=== PATIENT | female | born 1955 | race Caucasian/White ===

== ENCOUNTER 2021-10-18 07:55 | Outpatient (REF) | payer MEDICARE, OTHER, SELFPAY ==
[2021-10-18 08:21] LABS: MANUAL DIFF FLAG NO
[2021-10-18 09:01] LABS: Basophils Absolute Auto 0.1 X10*3/uL (0.0-0.2); Eosinophils Absolute Auto 0.4 X10*3/uL (0.0-0.4); Eosinophils Percent Auto 5.9 % (0-4); Hematocrit 42.6 % (37.0-47.0); Hemoglobin 13.9 g/dl (12.0-16.0); Imm Gran Abs Auto 0.02 X10*3/uL (0.00-0.03); Imm Gran Pct Auto 0.3 % (0.0-0.4); Lymphocytes Percent Auto 44.2 % (20-40); Mean Corpuscular HGB Conc 32.6 g/dl (31.0-35.0); Mean Corpuscular Hemoglobin 29.5 pg (27.0-33.0); Mean Corpuscular Volume 90.4 fL (80.0-98.0); Monocytes Absolute Auto 0.7 X10*3/uL (0.1-1.2); Monocytes Percent Auto 9.9 % (2-11); Neutrophils Absolute Auto 2.6 x10*3/uL (2.0-8.3); Neutrophils Percent Auto 38.7 % (45-73); Platelet Count 377 X10*3/uL (160-400); Red Blood Count 4.71 X10*6/uL (4.20-5.50); Red Cell Distribution Width 11.9 % (11.0-16.0); White Blood Count 6.7 X10*3/uL (4.8-10.8)
[2021-10-18 09:41] LABS: Alanine Aminotransferase 24 U/L (0-31); Albumin Level 4.1 g/dL (3.5-5.0); Alkaline Phosphatase 65 U/L (39-117); Anion Gap 10 (12-20); Aspartate Amino Transferase 17 U/L (5-31); Bilirubin Total 0.6 mg/dL (0.0-1.0); Blood Urea Nitrogen 7 mg/dL (9-16); Calcium 10.2 mg/dL (8.4-10.2); Carbon Dioxide 29 mmol/L (22-29); Chloride 108 mmol/L (96-108); Cholesterol 207 mg/dL; Estimated Glomerular Filt Rate > 60; Glucose Random 111 mg/dL (60-115); HDL Cholesterol 62 mg/dL; LDL Cholesterol Calculated 127 mg/dl; Potassium 5.1 mmol/L (3.3-5.1); Sodium 142 mmol/L (135-145); Total Protein 6.7 g/dL (6.5-8.0); Triglycerides 91 mg/dL
[2021-10-18 10:02] LABS: Thyroid Stimulating Hormone 0.01 uIU/mL (0.32-4.0)
== END 2021-10-18 07:56 | disposition home or self-care (01) ==
LOC: HO.LAB 07:55
PROVIDERS: PCP Internal Medicine; Visit Provider Internal Medicine
DX: Z00.00 Encounter for general adult medical examination without abnormal findings (principal); E03.9 Hypothyroidism, unspecified
CPT/HCPCS: 36415; 80053; 80061; 84443; 85025

== ENCOUNTER 2023-03-17 20:16 | Emergency (ER) | payer MEDICARE, OTHER, SELFPAY ==
--- NOTE | ~2023-03-17 | XR_ITS ---
EXAMINATION: CHEST 2 VIEWS CLINICAL INFORMATION: chest pain. COMPARISON: No recent pertinent prior studies are available for comparison. TECHNIQUE: PA and lateral views of the chest obtained. FINDINGS: The lungs are well expanded. No focal infiltrate, effusion, edema, or pneumothorax. Cardiac and mediastinal silhouettes are within normal limits for technique. No acute bony abnormality seen XR/XR chest 2V IMPRESSION: No evidence of acute disease
--- NOTE | 2023-03-17 20:20 | ECG_ITS ---
Test Reason : CHEST PAIN Blood Pressure : / mmHG Vent. Rate : 160 BPM Atrial Rate : 166 BPM P-R Int : 000 ms QRS Dur : 070 ms QT Int : 286 ms P-R-T Axes : 000 014 025 degrees QTc Int : 466 ms Atrial fibrillation with rapid ventricular response Nonspecific ST abnormality Abnormal ECG When compared with ECG of 16-JUN-2019 13:41, Atrial fibrillation with rapid ventricular response has replaced Normal sinus rhythm Non-specific change in ST segment in Inferior leads Nonspecific T wave abnormality now evident in Inferior leads Referred By: Indy García Electronically Signed By:ASPEN BRAVO MD
[2023-03-17 20:40] VITALS: BP 166/84; PULSE 189; RESP 18; TEMP 36.9; O2SAT 96
[2023-03-17 20:42] VITALS: BP 153/79; PULSE 98; RESP 14; TEMP 36.9; O2SAT 95
--- NOTE | 2023-03-17 20:45 | ED.ARRPALP ---
HPI - Arrhythmia/Palpitations General Chief Complaint: Arrhythmia/Palpitations Stated Complaint: heart palpitations, difficulty breathing Time Seen by Provider: 03/17/23 20:25 Source: patient Mode of arrival: ambulatory Limitations: no limitations History of Present Illness HPI narrative: Patient comes to emergency room complaining of ?not feeling good? and palpitations. Patient states that all morning she has not felt quite good, unable to explain, uncomfortable, no chest pain, no significant shortness of breath. 30 minutes prior to arrival, patient started noticing the palpitations, noticed that her heart rate was beating fast and came to the emergency room. On arrival to the ED, heart rate was 189 with a blood pressure of 166/84. Related Data Previous Rx's Medication Instructions Recorded apixaban 5 mg tablet (Eliquis) 5 mg PO BID #60 tabs 03/17/23 metoprolol succinate 25 mg 25 mg PO DAILY #30 tabs 03/17/23 tablet,extended release 24 hr (Toprol XL) Allergies Allergy/AdvReac Type Severity Reaction Status Date / Time amitriptyline [AMITRIPTYLINE] Allergy Severe TONGUE/MOUTH Unverified 07/01/20 16:44 SWELLING Review of Systems Review of Systems: Constitutional : No Weight loss, No Fever, No Chills, No Night Sweats, No Fatigue, generalized malaise, uncomfortable ENT/Mouth : No Hearing loss, No Ear Pain, No Nasal Congestion, No Sinus Pain, No Hoarseness, No sore throat, No Rhinorrhea, No Swallowing Difficulty Eyes: No Eye Pain, No Swelling, No Redness, No Foreign Body, No Discharge, No Vision Changes Cardiovascular : No Chest Pain, No SOB, No Dyspnea on Exertion, No Orthopnea, No Edema, palpitations and rapid heart rate Respiratory : No Cough, No Sputum, No Wheezing, No Smoke Exposure, No Dyspnea Gastrointestinal : No Nausea, No Vomiting, No Diarrhea, No Constipation, No abdominal Pain, No Hematochezia, No Melena Genitourinary : no irregular bleeding, No Dysuria, No Urinary Frequency, No Hematuria, No Urinary Incontinence, No Urgency, No Flank Pain, No Urinary Flow Changes, No Hesitancy Musculoskeletal : No joint pain, No Myalgias, No Joint Swelling Skin : No Skin Lesions, No rash Neuro : No Weakness, No Numbness, No Paresthesias, No Loss of Consciousness, No Dizziness, No Headache Psych : No Anxiety/Panic, No Depression, No SI/HI/AH/VH, No Social Issues, Heme/Lymph: No Bruising, No Bleeding,No Lymphadenopathy Endocrine : No Polyuria, No Polydipsia, No Temperature Intolerance [facility], [facility] Past Medical History Medical History (Updated 03/17/23 @ 23:43 by Lolly Escalante MD) Atrial fibrillation Hypothyroidism Social History Social History Advance Directives: No Advance Directives Information Provided: No Physical Exam Vital Signs: Vital Signs: Last Vital Signs Temp 98 F 03/17/23 22:26 Pulse 75 03/17/23 22:26 Resp 14 03/17/23 22:26 BP 124/70 03/17/23 22:26 Pulse Ox 96 03/17/23 22:26 O2 Del Method Room Air 03/17/23 22:26 BMI result Body Mass Index 26.6 Const: Other: Appearance: Alert. Oriented X3. Looks uncomfortable Eyes: Pupils equal, round and reactive to light. ENT: Pharynx normal. Neck: Normal inspection. Neck supple. No lymph nodes noted. No crepitus CVS: Tachycardic, heart rate in the 180s, irregular heart rate, Pulses normal. Normal S1 and S2 Respiratory: No respiratory distress. Breath sounds normal. No Wheezing. No rales Abdomen: Soft and nontender. No rigidity. No distention. Skin: Skin warm and dry. Normal skin color. Normal skin turgor. Extremities: No lower extremity edema. No Lacerations. No Rash Neuro: Oriented X 3. No motor deficit. No sensory deficit. Moving all extremities. No slurred speech. CN 2 through 12 grossly intact Psych: calm, cooperative, normal affect Course Course Course Narrative: -EKG on arrival showed an indeterminate rhythm with heart rate approximately 170 -patient was given 6 mg of adenosine without any effect, patient was given then 12 mg of adenosine, slowing the heart rate enough to see the rhythm, patient is in atrial fibrillation, heart rate increased to 160 again. -patient now receiving Cardizem push 20 mg -of patient's labs pending -after 20 mg of Cardizem, heart rate improved to the low 80s, still in AFib Medications Administered Discontinued Medications Generic Name Dose Route Start Last Admin Trade Name Freq PRN Reason Stop Dose Admin Adenosine 6 mg 03/17/23 20:42 03/17/23 21:14 Adenosine 6 Mg/2 Ml Vial IVPUSH 03/17/23 20:43 6 mg ONCE ONE Administration Adenosine 12 mg 03/17/23 20:43 03/17/23 21:14 Adenosine 6 Mg/2 Ml Vial IVPUSH 03/17/23 20:44 12 mg ONCE ONE Administration Diltiazem HCl 20 mg 03/17/23 20:42 03/17/23 21:14 Diltiazem Hcl 50 Mg/10 Ml Vial IVPUSH 03/17/23 20:43 20 mg STAT STA Administration Sodium Chloride 1,000 mls @ 999 mls/hr 03/17/23 20:43 03/17/23 22:22 Ns IVCONT 03/17/23 21:43 Infused .Q1H1M ONE Infusion Ondansetron HCl 4 mg 03/17/23 23:19 03/17/23 23:25 Ondansetron Hcl 4 Mg/2 Ml Vial IVPUSH 03/17/23 23:20 4 mg ONCE ONE Administration Medical Decision Making Medical Decision Making [facility] Narrative: -initially after a Cardizem push, patient was still in atrial fibrillation with rate control, admission was considered. However, shortly after the initial Cardizem push, patient spontaneously converted to normal sinus rhythm -EKG 2. My interpretation: Normal sinus rhythm, heart rate 71, no ST segment depression or elevation, no T-wave inversion -BMP within normal limits, troponin negative, chest x-ray shows no pulmonary edema -CHADS2 Vasc score 2 -I discussed with the patient risks versus benefits of starting anticoagulation. Patient decided to go ahead and start Eliquis, also tomorrow patient will start metoprolol p.o. -patient instructed to have close follow-up with her primary care physician and to schedule appointment with cardiology. Patient agrees with plan Admission/Observation Consideration of admission/observation: Escalation of care including admission/observation considered Lab Data [facility] Lab Attestation statement: I reviewed the patient's lab results. 03/17/23 20:33 Labs: Lab Results 03/17/23 03/17/23 03/17/23 Range/Units 20:33 20:33 20:33 WBC (4.8-10.8) X10*3/uL RBC (4.20-5.50) X10*6/uL Hgb (12.0-16.0) g/dl Hct (37.0-47.0) % MCV (80.0-98.0) fL MCH (27.0-33.0) pg MCHC (31.0-35.0) g/dl RDW (11.0-16.0) % Plt Count (160-400) X10*3/uL MPV (9.4-12.3) fL Immature Gran % (Auto) (0.0-0.4) % Neut % (Auto) (45-73) % Lymph % (Auto) (20-40) % [place] % (Auto) (2-11) % Eos % (Auto) (0-4) % Baso % (Auto) (0-2) % Lymph # (Auto) (1.2-4.9) X10*3/uL [place] # (Auto) (0.1-1.2) X10*3/uL Eos # (Auto) (0.0-0.4) X10*3/uL Baso # (Auto) (0.0-0.2) X10*3/uL Abs Immat Gran (auto) (0.00-0.03) X10*3/uL Absolute Neuts (auto) (2.0-8.3) x10*3/uL Absolute Nucleated RBC (0.0-0.012) X10*3/uL Nucleated RBC % (auto) (0.0-0.2) /100WBC PT (10.0-13.1) SEC INR (0.9-1.1) Sodium 147 H (135-145) mmol/L Potassium 4.3 (3.3-5.1) mmol/L Chloride 110 H (96-108) mmol/L Carbon Dioxide 26 (22-29) mmol/L Anion Gap 15 (12-20) BUN 9 (9-16) mg/dL Creatinine 0.79 (0.5-1.4) mg/dL Estim Creat Clear Calc TNP Estimated GFR > 60 Random Glucose 113 (60-115) mg/dL Calcium 10.7 H (8.4-10.2) mg/dL Magnesium 2.3 (1.6-2.6) mg/dL Total Bilirubin 0.6 (0.0-1.0) mg/dL AST 21 (5-31) U/L ALT 26 (0-31) U/L Alkaline Phosphatase 71 (39-117) U/L Troponin I High Sens < 2.7 (<3.5-17.0) ng/L B-Natriuretic Peptide 81 (<100) pg/mL Total Protein 7.7 (6.5-8.0) g/dL Albumin 4.6 (3.5-5.0) g/dL TSH 0.02 L (0.32-4.0) uIU/mL Free T4 1.41 (0.71-1.85) ng/dL 03/17/23 03/17/23 Range/Units 20:34 22:18 WBC 9.2 (4.8-10.8) X10*3/uL RBC 4.93 (4.20-5.50) X10*6/uL Hgb 14.5 (12.0-16.0) g/dl Hct 43.4 (37.0-47.0) % MCV 88.0 (80.0-98.0) fL MCH 29.4 (27.0-33.0) pg MCHC 33.4 (31.0-35.0) g/dl RDW 12.2 (11.0-16.0) % Plt Count 353 (160-400) X10*3/uL MPV 10.0 (9.4-12.3) fL Immature Gran % (Auto) 0.2 (0.0-0.4) % Neut % (Auto) 59.0 (45-73) % Lymph % (Auto) 26.9 (20-40) % [place] % (Auto) 10.8 (2-11) % Eos % (Auto) 2.3 (0-4) % Baso % (Auto) 0.8 (0-2) % Lymph # (Auto) 2.5 (1.2-4.9) X10*3/uL [place] # (Auto) 1.0 (0.1-1.2) X10*3/uL Eos # (Auto) 0.2 (0.0-0.4) X10*3/uL Baso # (Auto) 0.1 (0.0-0.2) X10*3/uL Abs Immat Gran (auto) 0.02 (0.00-0.03) X10*3/uL Absolute Neuts (auto) 5.5 (2.0-8.3) x10*3/uL Absolute Nucleated RBC 0.000 (0.0-0.012) X10*3/uL Nucleated RBC % (auto) 0.0 (0.0-0.2) /100WBC PT 11.1 (10.0-13.1) SEC INR 1.0 (0.9-1.1) Sodium (135-145) mmol/L Potassium (3.3-5.1) mmol/L Chloride (96-108) mmol/L Carbon Dioxide (22-29) mmol/L Anion Gap (12-20) BUN (9-16) mg/dL Creatinine (0.5-1.4) mg/dL Estim Creat Clear Calc Estimated GFR Random Glucose (60-115) mg/dL Calcium (8.4-10.2) mg/dL Magnesium (1.6-2.6) mg/dL Total Bilirubin (0.0-1.0) mg/dL AST (5-31) U/L ALT (0-31) U/L Alkaline Phosphatase (39-117) U/L Troponin I High Sens (<3.5-17.0) ng/L B-Natriuretic Peptide (<100) pg/mL Total Protein (6.5-8.0) g/dL Albumin (3.5-5.0) g/dL TSH (0.32-4.0) uIU/mL Free T4 (0.71-1.85) ng/dL Radiology Impression Discussion of test interpretation with radiology: I have reviewed the radiologist's reading. Radiologist Impression: Lung volumes are symmetric. No focal consolidation is seen. No evidence of pneumothorax, significant pleural effusion, or pulmonary edema. The cardiomediastinal contour is unremarkable. No acute osseous findings are seen. XR/XR chest 1V IMPRESSION: No acute cardiopulmonary findings Critical Care Time Critical Care Time Critical Care Time: Yes Total Critical Care Time: 60 Attestation: I have personally provided critical care time. Time includes review of lab data, radiology results, discussion with consultants, and monitoring for potential decompensation. Intervention performed as documented. Discharge Plan Discharge Clinical Impression: Atrial fibrillation, new onset Patient Disposition: Home, Self-Care Instructions: Apixaban (By mouth), A-fib (Atrial Fibrillation) (ED) Additional Instructions: Please follow-up with your primary care physician tomorrow. If you have any worsening or new symptoms, please return to the emergency room or call 911 Prescriptions: New metoprolol succinate [Toprol XL] 25 mg tablet extended release 24 hr 25 mg PO DAILY Qty: 30 0RF Eliquis 5 mg tablet 5 mg PO BID Qty: 60 0RF Referrals: Jace Bradshaw MD [Physician] - 03/19/23
[2023-03-17 20:47] LABS: Prothrombin Time 11.1 SEC (10.0-13.1)
[2023-03-17 20:48] VITALS: BP 146/81; PULSE 100; RESP 16; TEMP 36.6; O2SAT 93; BMI 26.6
[2023-03-17 20:58] LABS: Alanine Aminotransferase 26 U/L (0-31); Albumin Level 4.6 g/dL (3.5-5.0); Alkaline Phosphatase 71 U/L (39-117); Anion Gap 15 (12-20); Aspartate Amino Transferase 21 U/L (5-31); Bilirubin Total 0.6 mg/dL (0.0-1.0); Blood Urea Nitrogen 9 mg/dL (9-16); Calcium 10.7 mg/dL (8.4-10.2); Carbon Dioxide 26 mmol/L (22-29); Chloride 110 mmol/L (96-108); Estimated Glomerular Filt Rate > 60; Glucose Random 113 mg/dL (60-115); Magnesium 2.3 mg/dL (1.6-2.6); Potassium 4.3 mmol/L (3.3-5.1); Sodium 147 mmol/L (135-145); Total Protein 7.7 g/dL (6.5-8.0)
[2023-03-17 21:03] LABS: B Type Natriuretic Peptide 81 pg/mL (<100)
[2023-03-17 21:06] LABS: Troponin-I High Sensitivity < 2.7 ng/L (<3.5-17.0)
[2023-03-17] MEDS: Adenosine 6 MG/2 ML VIAL IVPUSH (21:14)
[2023-03-17] MEDS: Adenosine 6 MG/2 ML VIAL 12 MG IVPUSH (21:14)
[2023-03-17] MEDS: dilTIAZem HCL 50 MG/10 ML VIAL 20 MG IVPUSH (21:14)
[2023-03-17] MEDS: 0.9 % Sodium Chloride 1,000 ML 999 ML IVCONT (21:14)
[2023-03-17 21:39] LABS: TSH reflex Free T4 0.02 uIU/mL (0.32-4.0)
[2023-03-17 22:17] LABS: Free T4 (Free Thyroxine) 1.41 ng/dL (0.71-1.85)
[2023-03-17 22:24] LABS: MANUAL DIFF FLAG NO
[2023-03-17 22:25] LABS: Basophils Absolute Auto 0.1 X10*3/uL (0.0-0.2); Basophils Percent Auto 0.8 % (0-2); Eosinophils Absolute Auto 0.2 X10*3/uL (0.0-0.4); Eosinophils Percent Auto 2.3 % (0-4); Hematocrit 43.4 % (37.0-47.0); Hemoglobin 14.5 g/dl (12.0-16.0); Imm Gran Abs Auto 0.02 X10*3/uL (0.00-0.03); Imm Gran Pct Auto 0.2 % (0.0-0.4); Lymphocytes Absolute Auto 2.5 X10*3/uL (1.2-4.9); Lymphocytes Percent Auto 26.9 % (20-40); Mean Corpuscular HGB Conc 33.4 g/dl (31.0-35.0); Mean Corpuscular Hemoglobin 29.4 pg (27.0-33.0); Monocytes Percent Auto 10.8 % (2-11); Neutrophils Absolute Auto 5.5 x10*3/uL (2.0-8.3); Platelet Count 353 X10*3/uL (160-400); Red Blood Count 4.93 X10*6/uL (4.20-5.50); Red Cell Distribution Width 12.2 % (11.0-16.0); White Blood Count 9.2 X10*3/uL (4.8-10.8)
[2023-03-17 22:26] VITALS: BP 124/70; PULSE 75; RESP 14; TEMP 36.6; O2SAT 96
--- NOTE | 2023-03-17 22:40 | ECG_ITS ---
Test Reason : AFIB Blood Pressure : / mmHG Vent. Rate : 071 BPM Atrial Rate : 071 BPM P-R Int : 152 ms QRS Dur : 078 ms QT Int : 388 ms P-R-T Axes : 050 015 042 degrees QTc Int : 421 ms Normal sinus rhythm Normal ECG When compared with ECG of 17-MAR-2023 20:36, Sinus rhythm has replaced Atrial fibrillation Referred By: Lolly Escalante Electronically Signed By:ASPEN BRAVO MD
[2023-03-17 23:04] VITALS: PULSE 68
--- NOTE | 2023-03-17 23:20 | PC.NURSE ---
late entry: pt brought back from waiting room, palpitations x 1 hour prior to arrival. Pt placed on christmas tree grader as well as on pacer pads. Verbal order for 6mg Adenosine, with no success, verbal order for 12mg Adenosine. Once HR was lowered, verbal order for 20mg Diltiazem.
[2023-03-17] MEDS: ondansetron HCL 4 MG/2 ML VIAL IVPUSH (23:25)
[2023-03-17] MEDS: Apixaban 5 MG TABLET PO (23:54)
== END 2023-03-17 23:59 | disposition home or self-care (01) ==
PROVIDERS: Physician Assistant Medical; Emergency Provider Emergency Medicine; PCP Internal Medicine
DX: I48.91 Unspecified atrial fibrillation (principal); R00.0 Tachycardia, unspecified; R06.02 Shortness of breath
CPT/HCPCS: 36415; 71046; 80053; 83735; 83880; 84439; 84443; 84484; 85025; 85610; 93005; 96361; 96374; 96375; 96376; 99285; J0153; J2405